=== PATIENT | female | born 1955 | race Caucasian/White ===

== ENCOUNTER 2017-08-21 06:11 | Day surgery (SDC) | payer OTHER ==
[2017-08-21] MEDS ORDERED: PROPOFOL 40 ML (07:31)
[2017-08-21] MEDS ORDERED: LIDOCAINE 100 MG SYRINGE (07:31)
== END 2017-08-21 12:15 | disposition home or self-care (01) ==
LOC: GIL 06:11
DX: Z12.11 Encounter for screening for malignant neoplasm of colon (principal); K63.5 Polyp of colon; K64.8 Other hemorrhoids; E11.9 Type 2 diabetes mellitus without complications; E78.5 Hyperlipidemia, unspecified; I10 Essential (primary) hypertension
CPT/HCPCS: 45380; 82962; 88305